=== PATIENT | male | born 1965 | race African-American/Black ===

== ENCOUNTER 2021-08-09 12:44 | Outpatient (CLI) | payer BC | END 2021-08-09 12:45 | disposition home or self-care (01) | LOC: BICRAD 12:44 | PROVIDERS: ATTEND Thoracic Surgery (Cardiothoracic Vascular Surgery) | DX: J93.9 Pneumothorax, unspecified (principal); R91.8 Other nonspecific abnormal finding of lung field | CPT/HCPCS: 71046 ==